=== PATIENT | male | born 1975 | race African-American/Black ===

== ENCOUNTER 2021-04-05 09:04 | Emergency (ER) | payer OTHER ==
[~2021-04-05] VITALS: Ht 182.9 cm; Wt 99.0 kg
[2021-04-05] MEDS ORDERED: LEVETIRACETAM 1000MG PREMIX 100 ML IV ONE (09:30)
[2021-04-05 09:57] LABS: CHLORIDE 112 mEq/L (98-107)
[2021-04-05 09:58] LABS: BASOPHILS % 0.5 % (0.0-2.0); EOSINOPHILS % 0.8 % (0.0-5.0); HEMATOCRIT. 43.1 % (42.0-52.0); HEMOGLOBIN. 14.6 g/dL (14.0-18.0); LYMPHOCYTES % 30.5 % (20.0-50.0); MEAN CORPUSCULAR HEMOGLOBIN 32.4 pg (28.0-32.0); MEAN CORPUSCULAR VOLUME 95.7 fL (80.0-94.0); MEAN PLATELET VOLUME 8.3 fl (7.4-10.4); MONOCYTES % 8.9 % (2.0-8.0); NEUTROPHILS % 59.3 % (40.0-76.0); PLATELET 252 x1000/uL (130-400); RED CELL DISTRIBUTION WIDTH 13.9 % (11.6-14.6)
[2021-04-05 10:02] LABS: ETHANOL BLOOD < 10 mg/dL
[2021-04-05 10:52] VITALS: BP 134/72
== END 2021-04-05 10:00 | disposition home or self-care (01) ==
LOC: ER 09:04
DX: R56.9 Unspecified convulsions (principal)
CPT/HCPCS: 36415; 80053; 80320; 85025; 96365; 99284; J1953; G0480

== ENCOUNTER 2022-06-03 19:21 | Emergency (ER) | payer OTHER ==
[~2022-06-03] VITALS: Ht 175.3 cm; Wt 70.0 kg
[2022-06-03 19:52] VITALS: BP 119/83
== END 2022-06-03 20:40 | disposition left against medical advice (07) ==
LOC: ER 19:21
DX: Z53.21 Procedure and treatment not carried out due to patient leaving prior to being seen by health care provider (principal)

== ENCOUNTER 2022-11-08 04:27 | Emergency (ER) | payer OTHER ==
[~2022-11-08] VITALS: Ht 167.6 cm; Wt 65.0 kg
[2022-11-08] MEDS ORDERED: LEVETIRACETAM 500MG PREMIX 100 ML IV ONE (04:45)
[2022-11-08 05:23] LABS: CHLORIDE 104 mEq/L (98-107)
[2022-11-08 05:26] LABS: EOSINOPHILS % 1.1 % (0.0-5.0); HEMATOCRIT. 41.9 % (42.0-52.0); HEMOGLOBIN. 13.9 g/dL (14.0-18.0); LYMPHOCYTES % 49.5 % (20.0-50.0); MEAN CORPUSCULAR VOLUME 96.5 fL (80.0-94.0); MONOCYTES % 9.4 % (2.0-8.0); PLATELET 239 x1000/uL (130-400); RED BLOOD CELL COUNT 4.34 mill/uL (4.7-6.1); RED CELL DISTRIBUTION WIDTH 13.9 % (11.6-14.6)
[2022-11-08 05:31] LABS: ETHANOL BLOOD < 10 mg/dL
[2022-11-08] MEDS ORDERED: KEPP500 MT (05:32)
[2022-11-08] MEDS ORDERED: PHEN100C4 MT (05:37)
[2022-11-08 06:08] VITALS: BP 112/68
== END 2022-11-08 06:10 | disposition home or self-care (01) ==
LOC: ER 04:27
DX: G40.909 Epilepsy, unspecified, not intractable, without status epilepticus (principal); Z91.14 Patient's other noncompliance with medication regimen
CPT/HCPCS: 36415; 80053; 80320; 82962; 83605; 85025; 96374; 99283; J1953; G0480

== ENCOUNTER 2025-02-15 06:52 | Emergency (ER) | payer MEDICAID ==
[~2025-02-15] VITALS: Ht 175.3 cm; Wt 68.0 kg
[~2025-02-15 06:52] MED LIST: KEPP500 MT; PHEN100C4 MT
[2025-02-15 07:00] VITALS: O2SAT 95
[2025-02-15] MEDS ORDERED: PHEN100C4 MT (08:23)
[2025-02-15 08:35] VITALS: BP 133/99; PULSE 78; RESP 15; TEMP 36.9; O2SAT 95
== END 2025-02-15 08:35 | disposition home or self-care (01) ==
LOC: ER 06:52
DX: R56.9 Unspecified convulsions (principal); R03.0 Elevated blood-pressure reading, without diagnosis of hypertension; Z76.0 Encounter for issue of repeat prescription; Z79.899 Other long term (current) drug therapy
CPT/HCPCS: 99281

== ENCOUNTER 2025-03-09 07:12 | Emergency (ER) | payer MEDICAID, OTHER ==
[~2025-03-09] VITALS: Ht 175.3 cm; Wt 70.0 kg
[2025-03-09 07:23] VITALS: BP 140/86; PULSE 86; RESP 16; TEMP 36.8; O2SAT 96
[2025-03-09 09:21] LABS: CLARITY URINE CLEAR (CLEAR); COLOR URINE YELLOW (YELLOW); GLUCOSE URINE NEGATIVE (NEGATIVE); KETONES URINE NEGATIVE (NEGATIVE); LEUKOCYTE ESTERASE URINE 1+ (NEGATIVE); NITRITE URINE NEGATIVE (NEGATIVE); OCCULT BLOOD URINE NEGATIVE (NEGATIVE); PH URINE 6.5 (4.5-8.0); PROTEIN URINE TRACE (NEGATIVE)
[2025-03-09 09:50] LABS: MUCUS URINE TRACE /lpf (NONE/TRACE)
[2025-03-09 09:51] LABS: SQUAMOUS EPITHELIAL CELL URINE RARE /lpf (RARE/1+)
[2025-03-09 09:53] LABS: BACTERIA URINE TRACE; RBC URINE 0-2 /hpf (0-2)
== END 2025-03-09 11:15 | disposition left against medical advice (07) ==
LOC: ER 07:12
DX: N45.1 Epididymitis (principal); N43.2 Other hydrocele; G40.909 Epilepsy, unspecified, not intractable, without status epilepticus
CPT/HCPCS: 76870; 81003; 93976; 99284

== ENCOUNTER 2025-03-24 07:09 | Emergency (ER) | payer OTHER ==
[~2025-03-24] VITALS: Ht 175.3 cm; Wt 64.5 kg
[2025-03-24 07:13] VITALS: TEMP 37; O2SAT 99
[2025-03-24 07:32] VITALS: BP 136/77; PULSE 75; RESP 16; O2SAT 98
== END 2025-03-24 07:34 | disposition home or self-care (01) ==
LOC: ER 07:09
DX: R56.9 Unspecified convulsions (principal); Z76.0 Encounter for issue of repeat prescription; Z79.899 Other long term (current) drug therapy; Z98.890 Other specified postprocedural states
CPT/HCPCS: 99281

== ENCOUNTER 2025-04-04 07:02 | Emergency (ER) | payer OTHER ==
[~2025-04-04] VITALS: Ht 175.3 cm; Wt 69.0 kg
[2025-04-04 07:05] VITALS: O2SAT 100
[2025-04-04 07:11] VITALS: BP 150/87; PULSE 74; RESP 18; TEMP 36.9; O2SAT 99
[2025-04-04] MEDS ORDERED: PHEN100C12 MT (07:13)
[2025-04-04] MEDS ORDERED: PHENYTOIN SODIUM EXTENDED 100MG CAPSULE PO ONE (07:15)
== END 2025-04-04 07:18 | disposition home or self-care (01) ==
LOC: ER 07:02
DX: R56.9 Unspecified convulsions (principal); Z76.0 Encounter for issue of repeat prescription
CPT/HCPCS: 99281; 99282

== ENCOUNTER 2025-05-10 07:23 | Emergency (ER) | payer MEDICAID, OTHER ==
[~2025-05-10] VITALS: Ht 175.3 cm; Wt 69.0 kg
[~2025-05-10 07:23] MED LIST changes: +PHEN100C12 MT
[2025-05-10 07:36] VITALS: O2SAT 100
[2025-05-10 08:44] VITALS: BP 124/93; PULSE 69; RESP 16; TEMP 36.7; O2SAT 100
== END 2025-05-10 08:50 | disposition home or self-care (01) ==
LOC: ER 07:23
DX: R56.9 Unspecified convulsions (principal); Z76.0 Encounter for issue of repeat prescription; Z79.899 Other long term (current) drug therapy
CPT/HCPCS: 99281

== ENCOUNTER 2025-06-21 07:30 | Emergency (ER) | payer MEDICAID ==
[~2025-06-21] VITALS: Ht 175.3 cm; Wt 82.0 kg
[2025-06-21 07:33] VITALS: O2SAT 98
[2025-06-21] MEDS ORDERED: PHEN100C4 PO (07:50)
[2025-06-21 08:05] VITALS: BP 145/90; PULSE 78; RESP 16; TEMP 36.6; O2SAT 98
== END 2025-06-21 08:08 | disposition home or self-care (01) ==
LOC: ER 07:30
DX: R56.9 Unspecified convulsions (principal); Z76.0 Encounter for issue of repeat prescription; Z79.899 Other long term (current) drug therapy
CPT/HCPCS: 99281; 99282

== ENCOUNTER 2025-08-04 06:20 | Emergency (ER) | payer MEDICAID ==
[~2025-08-04] VITALS: Ht 175.3 cm; Wt 91.0 kg
[~2025-08-04 06:20] MED LIST changes: +PHEN100C4 PO
[2025-08-04 06:22] VITALS: TEMP 36.9; O2SAT 95
[2025-08-04] MEDS ORDERED: TOPUD PO (06:47)
[2025-08-04] MEDS ORDERED: PHEN100C12 PO (06:49)
[2025-08-04] MEDS: ACETAMINOPHEN 325MG TABLET PO ONE (07:04)
[2025-08-04 07:05] VITALS: BP 136/99; PULSE 63; RESP 16; O2SAT 100
== END 2025-08-04 07:08 | disposition home or self-care (01) ==
LOC: ER 06:20
DX: M79.672 Pain in left foot (principal); Z76.0 Encounter for issue of repeat prescription; Z59.00 Homelessness unspecified; Z79.899 Other long term (current) drug therapy
CPT/HCPCS: 99283

== ENCOUNTER 2025-09-07 09:25 | Emergency (ER) | payer MEDICAID ==
[~2025-09-07] VITALS: Ht 175.3 cm; Wt 74.0 kg
[~2025-09-07 09:25] MED LIST changes: +PHEN100C12 PO; +TOPUD PO
[2025-09-07 09:28] VITALS: O2SAT 100
[2025-09-07 09:32] VITALS: BP 122/74; PULSE 70; RESP 18; TEMP 36.7; O2SAT 100
== END 2025-09-07 10:39 | disposition home or self-care (01) ==
LOC: ER 09:25
DX: Z00.00 Encounter for general adult medical examination without abnormal findings (principal); Z76.0 Encounter for issue of repeat prescription; Z79.899 Other long term (current) drug therapy
CPT/HCPCS: 99282